=== PATIENT | female | born 1955 | race African-American/Black ===

== ENCOUNTER 2018-12-17 12:16 | Emergency (ER) | payer OTHER ==
[~2018-12-17] VITALS: Ht 177.8 cm; Wt 110.0 kg
[2018-12-17 12:29] VITALS: Ht 177.8 cm; Wt 110.0 kg
[2018-12-17] MEDS ORDERED: KETOROLAC 15 MG INJ IV STA (14:18)
[2018-12-17] MEDS ORDERED: ONDANSETRON 4 MG INJ IV STA (14:18)
[2018-12-17] MEDS ORDERED: SOD CHLORIDE 0.9% 500 ML IV STA (14:18)
[2018-12-17] MEDS ORDERED: PARO10TA57 PO (15:49)
[2018-12-17] MEDS ORDERED: RISP2TAB3 PO (15:49)
[2018-12-17] MEDS ORDERED: ONDA4TAB8 PO (15:53)
[2018-12-17] MEDS ORDERED: IBUP-1542 PO (15:53)
--- NOTE | 2018-12-17 15:58 | ERD ---
ER Documentation Chief Complaint Chief Complaint DIZZINESS WITH LOW BP AT HOME, HX OF DM, LEFT LEG NUMBNESS, LWKT 1 WEEK HPI 63-year-old woman is complaining of dizziness x1 week shortly after beginning tramadol daily for bilateral hip pain, she states she fell last week and injured her hips and was taken to an emergency department, x-rays were negative for fractures. She was prescribed tramadol which she states she has been using daily with decent control of her hip pain but she has began to feel dizzy on a constant daily basis. She has had no fevers or chills, no chest pain or shortness of breath, no loss of consciousness, no headache or blurry vision. ROS All systems reviewed and are negative except as per history of present illness. Medications Home Meds Active Scripts Ondansetron Hcl* (Zofran*) 4 Mg Tablet, 4 MG PO Q8H PRN for NAUSEA AND/OR VOMITING, #30 TAB Prov:GEORGIA CONLEY MD 12/17/18 Ibuprofen* (Motrin*) 600 Mg Tab, 600 MG PO Q8 PRN for PAIN AND/OR INFLAMMATION, #30 TAB Prov:GEORGIA CONLEY MD 12/17/18 Reported Medications Risperidone* (Risperidone*) 2 Mg Tablet, 2 MG PO BID, TAB 12/17/18 Paroxetine Hcl* (Paxil*) 10 Mg Tablet, 10 MG PO HS, TAB 12/17/18 Allergies Allergies: Coded Allergies: No Known Allergy (Unverified , 12/17/18) PMhx/Soc Psychiatric illness, recent hip sprain History of Surgery: Yes (gallbladder removed, hysterectomy) Hx Alcohol Use: No Hx Substance Use: No Hx Tobacco Use: Yes Smoking Status: Current every day smoker FmHx Family History: No diabetes Physical Exam Vitals Vital Signs Date Temp Pulse Resp B/P (MAP) Pulse Ox O2 O2 Flow FiO2 Time Delivery Rate 12/17/18 78 18 136/92 100 Room Air 14:30 (107) 12/17/18 73 18 165/70 100 Room Air 13:54 (101) 12/17/18 98.1 81 16 97/54 (68) 100 12:29 Physical Exam GENERAL: Well-developed, well-nourished, well-hydrated, in no apparent distress, looks nontoxic in appearance NEURO: Alert and oriented 3, cranial nerves II through XII intact bilaterally, pupils equal round reactive to light, no focal deficits or facial asymmetry, sensation intact distally Strength 5/5 in upper and lower extremities bilaterally CARDIAC: Regular rate and rhythm, no murmurs rubs or gallops LUNGS: Clear bilaterally no wheezing crackles or stridor EXTREMITIES: No clubbing cyanosis or edema, calves are bilaterally symmetrical, no Homans sign, no popliteal cord sign. Distal pulses equal and bilateral PSYCH: Normal affect without agitation or irritability Result Diagram: 12/17/18 1405 12/17/18 1405 Results 24 hrs Laboratory Tests Test 12/17/18 14:05 12/17/18 15:32 White Blood Count 10.4 10^3/ul Red Blood Count 3.97 10^6/ul Hemoglobin 11.1 g/dl Hematocrit 34.0 % Mean Corpuscular Volume 85.6 fl Mean Corpuscular Hemoglobin 28.0 pg Mean Corpuscular Hemoglobin Concent 32.6 g/dl Red Cell Distribution Width 12.7 % Platelet Count 192 10^3/UL Mean Platelet Volume 11.0 fl Immature Granulocytes % 0.300 % Neutrophils % 62.8 % Lymphocytes % 29.8 % Monocytes % 6.2 % Eosinophils % 0.7 % Basophils % 0.2 % Nucleated Red Blood Cells % 0.0 /100WBC Immature Granulocytes # 0.030 10^3/ul Neutrophils # 6.6 10^3/ul Lymphocytes # 3.1 10^3/ul Monocytes # 0.7 10^3/ul Eosinophils # 0.1 10^3/ul Basophils # 0.0 10^3/ul Nucleated Red Blood Cells # 0.0 10^3/ul Sodium Level 135 mmol/L Potassium Level 4.8 mmol/L Chloride Level 102 mmol/L Carbon Dioxide Level 24 mmol/L Anion Gap 9 Blood Urea Nitrogen 20 mg/dl Creatinine 1.07 mg/dl Est Glomerular Filtrat Rate mL/min 51 mL/min Glucose Level 255 mg/dl Calcium Level 9.8 mg/dl Urine Color STRAW Urine Clarity CLEAR Urine pH 6.0 Urine Specific [place] 1.006 Urine Ketones NEGATIVE mg/dL Urine Nitrite NEGATIVE mg/dL Urine Bilirubin NEGATIVE mg/dL Urine Urobilinogen NEGATIVE mg/dL Urine Leukocyte Esterase NEGATIVE Daniella/ul Urine Hemoglobin NEGATIVE mg/dL Urine Glucose 2+ mg/dL Urine Total Protein NEGATIVE mg/dl Current Medications Medications Dose Sig/[place] Start Time Status Last (Trade) Ordered Route PRN Stop Time Admin Dose Reason Admin Sodium 500 ml @ Q1H STAT 12/17/18 DC 12/17/18 Chloride 500 mls/hr IV 14:18 14:40 12/17/18 15:17 Ondansetron 4 mg ONCE STAT 12/17/18 DC 12/17/18 HCl (Zofran IV 14:18 14:39 Inj) 12/17/18 14:19 Ketorolac 15 mg ONCE STAT 12/17/18 DC 12/17/18 Tromethamine IV 14:18 14:40 (Toradol) 12/17/18 14:19 Procedures/MDM IV line was established patient was placed on chief deputy coroner rhythm strip revealed a sinus rhythm at about 80 bpm with upright P and T waves. Patient was afebrile I administered 500 cc normal saline, Toradol 15 mg IV, Zofran 4 mg IV CBC and electrolytes were unremarkable, urinalysis negative for infection. Patient's dizziness began shortly after using tramadol, 1 of its main side effects is dizziness so I recommend that she discontinue tramadol, I prescribed her Zofran as needed dizziness and ibuprofen as needed pain. Differential diagnoses considered, included but not limited to acute coronary syndrome, pulmonary embolism, aortic dissection, abdominal aortic aneurysm, sepsis, stroke, meningitis, encephalitis, pneumonia, appendicitis, cholecystitis, bowel obstruction, pyelonephritis, nephrolithiasis, cystitis, as well as metabolic, hematologic, and electrolyte abnormalities. As well as abscess, cellulitis, fractures, and dislocations. Patient feels much better at this time, and vital signs are normal, symptoms have improved. I did give strict instructions to return to the ED if symptoms continue or worsen, patient will otherwise follow-up with primary care physician. Patient understood instructions and agreed to plan. Disclaimer: Inadvertent spelling and grammatical errors are likely due to EHR/dictation software use and do not reflect on the overall quality of patient care. Also, please note that the electronic time recorded on this note does not necessarily reflect the actual time of the patient encounter. Departure Diagnosis: Primary Impression: Dizziness Additional Impressions: Medication side effect Hip sprain Encounter type: initial encounter Laterality: left Qualified Codes: S73.102A - Unspecified sprain of left hip, initial encounter Condition: Good Patient Instructions: Dizziness, Unk Cause, Hip Strain GEORGIA CONLEY MD Dec 17, 2018 15:58
[2018-12-17 16:26] VITALS: BP 155/73; PULSE 74; RESP 18
== END 2018-12-17 16:32 | disposition home or self-care (01) ==
LOC: E/R 12:16
DX: S73.102A Unspecified sprain of left hip, initial encounter (principal); R42 Dizziness and giddiness; T40.4X5A Adverse effect of other synthetic narcotics, initial encounter; F17.210 Nicotine dependence, cigarettes, uncomplicated; E11.9 Type 2 diabetes mellitus without complications; W18.30XA Fall on same level, unspecified, initial encounter; Y92.9 Unspecified place or not applicable
CPT/HCPCS: 36415; 80048; 81003; 85025; 96374; 96375; 99284; J1885; J2405; J7040